=== PATIENT | male | born 1995 | race Caucasian/White ===

== ENCOUNTER 2016-05-12 11:50 | Emergency (ER) | payer MEDICAID ==
[~2016-05-12] VITALS: Ht 177.8 cm; Wt 88.5 kg
[2016-05-12 12:07] VITALS: BP 151/92
--- NOTE | 2016-05-12 12:10 | NUR ---
PT AMBULATED TO BED 5 AT THIS TIME.
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
--- NOTE | 2016-05-12 12:44 | NUR ---
ER MD DR. PARR EVALUATING PT AT BEDSIDE.
[2016-05-12] MEDS ORDERED: KETOROLAC 60 MG/2 ML VIAL IM ONE (12:55)
--- NOTE | 2016-05-12 13:23 | NUR ---
PT TAKEN TO XRAY VIA W/C ACCOMPANIED BY [employer] AT THIS TIME.
[2016-05-12 13:51] VITALS: BP 140/90
== END 2016-05-12 13:51 | disposition home or self-care (01) ==
LOC: MED 11:50
DX: S20.211A Contusion of right front wall of thorax, initial encounter (principal); M25.511 Pain in right shoulder; R03.0 Elevated blood-pressure reading, without diagnosis of hypertension; W19.XXXA Unspecified fall, initial encounter; Y93.89 Activity, other specified; Y92.89 Other specified places as the place of occurrence of the external cause; Y99.8 Other external cause status
CPT/HCPCS: 71020; 96372; 99284; J1885

== ENCOUNTER 2017-06-18 09:58 | Emergency (ER) | payer MEDICAID ==
[~2017-06-18] VITALS: Ht 175.3 cm; Wt 100.9 kg
[2017-06-18 10:02] VITALS: BP 153/101
--- NOTE | 2017-06-18 10:06 | NUR ---
PT AMBULATED TO BED 11.
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
--- NOTE | 2017-06-18 10:08 | NUR ---
Patient being evaluated by DR DAO at bedside.
[2017-06-18] MEDS ORDERED: CEPHALEXIN 500 MG CAP PO ONE (10:10)
[2017-06-18] MEDS ORDERED: KETOROLAC 60 MG/2 ML VIAL IM ONE (10:10)
--- NOTE | 2017-06-18 10:28 | NUR ---
pt taken to x ray via w/c accompanied by [employer].
--- NOTE | 2017-06-18 10:53 | NUR ---
pt back from x ray via w/c accompanied by trade mark examiner.
[2017-06-18 11:42] VITALS: BP 135/70
--- NOTE | 2017-06-18 11:42 | NUR ---
Patient discharged with v/s stable. Written and verbal after care instructions given and explained. Patient alert, oriented and verbalized understanding of instructions. Ambulatory with steady gait. All questions addressed prior to discharge. ID band removed. Patient advised to follow up with PMD. Rx of Keflex 500mg and Ibuprofen 800mg given. Patient educated on indication of medication including possible reaction and side effects. Opportunity to ask questions provided and answered.
== END 2017-06-18 11:42 | disposition home or self-care (01) ==
LOC: MED 09:58
DX: S80.12XA Contusion of left lower leg, initial encounter (principal); S80.11XA Contusion of right lower leg, initial encounter; V29.9XXA Motorcycle rider (driver) (passenger) injured in unspecified traffic accident, initial encounter; Y93.89 Activity, other specified; Y92.89 Other specified places as the place of occurrence of the external cause; Y99.8 Other external cause status
CPT/HCPCS: 73562; 73590; 73610; 90471; 90715; 96372; 99284; J1885

== ENCOUNTER 2018-06-14 10:13 | Emergency (ER) | payer MEDICAID ==
[~2018-06-14] VITALS: Ht 177.8 cm; Wt 99.3 kg
[2018-06-14 10:40] VITALS: BP 123/54
--- NOTE | 2018-06-14 10:42 | NUR ---
PT TAKEN TO ER CHAIR E
--- NOTE | 2018-06-14 10:47 | NUR ---
PT TO RADIOLOGY VIA
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
[2018-06-14] MEDS ORDERED: IBUPROFEN 800 MG TAB PO ONE (11:35)
[2018-06-14 12:40] VITALS: BP 123/54
--- NOTE | 2018-06-14 12:40 | NUR ---
Patient discharged with v/s stable. Written and verbal after care instructions given and explained. Patient alert, oriented and verbalized understanding of instructions. Ambulatory with crutches. All questions addressed prior to discharge. ID band removed. Patient advised to follow up with PMD. Rx of voltaren given. Patient educated on indication of medication including possible reaction and side effects. Opportunity to ask questions provided and answered.
== END 2018-06-14 12:40 | disposition home or self-care (01) ==
LOC: MED 10:13
DX: S89.91XA Unspecified injury of right lower leg, initial encounter (principal); V00.311A Fall from snowboard, initial encounter; Y93.23 Activity, snow (alpine) (downhill) skiing, snowboarding, sledding, tobogganing and snow tubing; Y92.89 Other specified places as the place of occurrence of the external cause; Y99.8 Other external cause status
CPT/HCPCS: 29505; 29515; 73562; 99283

== ENCOUNTER 2018-06-16 20:36 | Emergency (ER) | payer MEDICAID ==
[~2018-06-16] VITALS: Ht 177.8 cm; Wt 97.5 kg
[2018-06-16 20:50] VITALS: BP 137/65
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
--- NOTE | 2018-06-16 20:53 | NUR ---
TO ED 11 WITH STEADY GAIT
--- NOTE | 2018-06-16 22:00 | NUR ---
Patient discharged with v/s stable. Written and verbal after care instructions given and explained. Patient verbalized understanding. Ambulatory with steady gait. All questions addressed prior to discharge. Advised to follow up with PMD.
[2018-06-16 22:03] VITALS: BP 132/63
== END 2018-06-16 22:00 | disposition home or self-care (01) ==
LOC: MED 20:36
DX: S83.91XA Sprain of unspecified site of right knee, initial encounter (principal); X58.XXXA Exposure to other specified factors, initial encounter; Y93.23 Activity, snow (alpine) (downhill) skiing, snowboarding, sledding, tobogganing and snow tubing; Y92.89 Other specified places as the place of occurrence of the external cause; Y99.8 Other external cause status
CPT/HCPCS: 99281

== ENCOUNTER 2018-11-07 22:26 | Emergency (ER) | payer MEDICAID ==
[~2018-11-07] VITALS: Ht 177.8 cm; Wt 95.3 kg
[2018-11-07 22:29] VITALS: BP 134/60
--- NOTE | 2018-11-07 22:32 | NUR ---
TO LOBBY A/W BED AMBULATORY
--- NOTE | 2018-11-07 22:39 | NUR ---
PT TAKEN TO BED 11
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
--- NOTE | 2018-11-07 22:55 | NUR ---
DR LEE AT BEDSIDE FOR MSE
[2018-11-07] MEDS ORDERED: LIDOCAINE/EPI 1% 1:100000 20 ML VIAL INJ ONE (23:00)
--- NOTE | 2018-11-07 23:17 | NUR ---
X-Ray at bedside.
--- NOTE | 2018-11-08 01:45 | NUR ---
DR LEE AT BEDSIDE FOR LAC REPAIR OF L KNEE LACERATION
--- NOTE | 2018-11-08 01:45 | NUR ---
L KNEE LACERATION IRRIGATED WITH 500ML NS AFTER LIDOCAINE/EPI. PT ABLE TO TOLERATE PAIN.
[2018-11-08] MEDS ORDERED: BACITRACIN OINT 500 UNITS/GM PKT TP ONE (01:55)
--- NOTE | 2018-11-08 02:05 | NUR ---
WOUND CARE PERFORMED. R KNEE SUPERFICIAL ABRASION CLEANSED WITH NS AND GAUZE, PAT DRY, APPLIED BACITRACIN. SMALL ABRASIONS ON R PALM AND L PALM CLEANSED WITH NS AND GAUZE, PAT DRY, APPLIED BACITRACIN. L KNEE LACERATION REPAIRED WITH SUTURES CLEANSED, PAT DRY, APPLIED BACITRACIN. PT TOLERATED WELL.
[2018-11-08 02:23] VITALS: BP 137/64
== END 2018-11-08 02:24 | disposition home or self-care (01) ==
LOC: MED 22:26
DX: S81.012A Laceration without foreign body, left knee, initial encounter (principal); M25.561 Pain in right knee; V19.9XXA Pedal cyclist (driver) (passenger) injured in unspecified traffic accident, initial encounter; Y93.89 Activity, other specified; Y92.89 Other specified places as the place of occurrence of the external cause; Y99.8 Other external cause status
CPT/HCPCS: 12001; 73562; 90471; 90715; 99283; J2001; Q0092

== ENCOUNTER 2018-11-15 15:19 | Emergency (ER) | payer MEDICAID ==
[~2018-11-15] VITALS: Ht 177.8 cm; Wt 97.5 kg
[2018-11-15 15:21] VITALS: BP 123/61
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
[2018-11-15 15:54] VITALS: BP 118/58
== END 2018-11-15 15:54 | disposition home or self-care (01) ==
LOC: MED 15:19
DX: S81.011D Laceration without foreign body, right knee, subsequent encounter (principal); X58.XXXD Exposure to other specified factors, subsequent encounter
CPT/HCPCS: 99283